=== PATIENT | male | born 1960 | race Caucasian/White ===

== ENCOUNTER 2017-05-13 14:42 | Inpatient (IN) | payer OTHER ==
[2017-05-13 15:54] VITALS: BMI 33.0
--- NOTE | 2017-05-13 18:12 | HP ---
COWS - Scale Resting Pulse: 1= [place] 81-100 Sweatin= Chills/Flushing Restless Observation: 1= Difficult to Sit Still Pupil Size: 0= Normal to Room Light Bone or Joint Aches: 2= Severe Diffuse Aches Runny Nose/ Eye Tearin= Runny Nose/Eyes GI Upset > 30mins: 2= Nausea/Diarrhea Tremor Observation: 2= Slight Tremor Visible Yawning Observation: 0= None Anxiety or Irritability: 2=Irritable/Anxious Goose Flesh Skin: 0=Smooth Skin COWS Score: 13 CIWA Score - CIWA Score Nausea/Vomitin-Mild Nausea/No Vomiting Muscle Tremors: 4-Moderate,w/Arms Extend Anxiety: 4-Mod. Anxious/Guarded Agitation: 4-Moderately Restless Paroxysmal Sweats: 1-Minimal Palms Moist Orientation: 0-Oriented Tacttile Disturbances: 0-None Auditory Disturbances: 0-None Visual Disturbances: 0-None Headache: 0-None Present CIWA-Ar Total Score: 14 Admission ROS S - HPI Chief Complaint: withdrawal sx patient states that he is in pain management program since 2015, last visited 05/07/2017, due to + opiate urine, patient wants to detox from opiate following up with program possible suboxone or naltraxone as maintenance medical assistance treatment Allergies/Adverse Reactions: Allergies Allergy/AdvReac Type Severity Reaction Status Date / Time No Known Allergies Allergy Verified 05/13/17 16:36 History of Present Illness: 56 years old male with long history of opiate dependence, has positive ppd, gerd , denies mental illness is admitted to detox Exam Limitations: No Limitations - Ebola screening Have you traveled outside of the country in the last 21 days: No Have you had contact with anyone from an Ebola affected area: No Have you been sick,other than usual withdrawal symptoms: No Do you have a fever: No - Review of Systems Constitutional: Changes in sleep, Weight Stable EENT: reports: Blurred Vision (reading eye glasses), Dental Problems (no teeth dental at home) Respiratory: reports: No Symptoms reported Cardiac: reports: No Symptoms Reported GI: reports: Nausea, Poor Fluid Intake, Indigestion, Abdominal cramping : reports: No Symptoms Reported Musculoskeletal: reports: No Symptoms Reported Integumentary: reports: Change in Color (both upper extremities) Neuro: reports: Tremors Endocrine: reports: No Symptoms Reported Hematology: reports: No Symptoms Reported Psychiatric: reports: Judgement Intact, Mood/Affect Appropiate, Orientated x3 Other Systems: Reviewed and Negative Patient History - Patient Medical History Hx Anemia: No Hx Asthma: No Hx Chronic Obstructive Pulmonary Disease (COPD): No Hx Cancer: No Hx Cardiac Disorders: No Hx Congestive Heart Failure: No Hx Hypertension: No Hx Hypercholesterolemia: No Hx Pacemaker: No HX Cerebrovascular Accident: No Hx Seizures: No Hx Dementia: No Hx Diabetes: No Hx Gastrointestinal Disorders: Yes Hx Liver Disease: No Hx Genitourinary Disorders: No Hx Sexually Transmitted Disorders: No Hx Renal Disease (ESRD): No Hx Thyroid Disease: No Hx Human Immunodeficiency Virus (HIV): No Hx Hepatitis C: Yes (for 20 years) Hx Depression: No Hx Suicide Attempt: No Hx Bipolar Disorder: No Hx Schizophrenia: No - Patient Surgical History Past Surgical History: Yes Hx Neurologic Surgery: No Hx Cataract Extraction: No Hx Cardiac Surgery: No Hx Lung Surgery: No Hx Breast Surgery: No Hx Breast Biopsy: No Hx Abdominal Surgery: No Hx Appendectomy: No Hx Cholecystectomy: Yes (2015) Hx Genitourinary Surgery: No Hx Orthopedic Surgery: Yes (arthroscopic sx, left knee x2) Other Surgical History: R ankle sx in 2013 Anesthesia Reaction: No - PPD History Documented Results: Positive w/proof Implanted On Prior [facility] Admission?: No Date: 12/04/11 PPD to be Administered?: No - Smoking Cessation Smoking history: Never smoked Have you smoked in the past 12 months: No Hx Chewing Tobacco Use: No Initiated information on smoking cessation: No - Substance & Tx. History Hx Alcohol Use: Yes Hx Substance Use: Yes Substance Use Type: Alcohol, Heroin, Opiates Hx Substance Use Treatment: Yes (2011 [facility]) - Substances Abused Heroin Route: Injection Frequency: Daily Amount used: 10-15 BAGS Age of first use: 22 Date of Last Use: 05/13/17 Alcohol Route: Oral Frequency: Daily Amount used: 12 PK BEER Age of first use: 13 Date of Last Use: 05/13/17 Family Disease History - Family Disease History Family History: Unremarkable Admission Physical Exam [facility] - Vital Signs Vital Signs: Vital Signs - 24 hr 05/13/17 15:51 Temperature 97.5 F L Pulse Rate 83 Respiratory 20 Rate Blood Pressure 139/82 - Physical General Appearance: Yes: Appropriately Dressed, Mild Distress, Obese, Tremorous , Irritable, Sweating, Anxious HEENTM: Yes: Hearing grossly Normal, Normal ENT Inspection, Normocephalic, Normal Voice Respiratory: Yes: Chest Non-Tender, Lungs Clear, Normal Breath Sounds, No Respiratory Distress, No Accessory Muscle Use Neck: Yes: Supple, Trachea in good position Breast: Yes: Breasts Symetrical Cardiology: Yes: Regular Rhythm, Regular Rate, S1, S2 Abdominal: Yes: Non Tender, Soft, Increased Bowel Sounds Genitourinary: Yes: Within Normal Limits Back: Yes: Normal Inspection Musculoskeletal: Yes: full range of Motion, Gait Steady, Muscle weakness (right leg) Extremities: Yes: Normal Inspection, Non-Tender, Tremors Neurological: Yes: Fully Oriented, Alert, Motor Strength 5/5, Normal Mood/Affect , Normal Response Integumentary: Yes: Warm Lymphatic: Yes: Within Normal Limits - Diagnostic (1) Alcohol dependence with uncomplicated withdrawal Current Visit: Yes Status: Acute (2) Opioid dependence with withdrawal Current Visit: Yes Status: Acute (3) Status post fall Current Visit: Yes Status: Chronic Comment: right leg injury (4) Positive PPD, treated Current Visit: Yes Status: Resolved (5) GERD (gastroesophageal reflux disease) Current Visit: Yes Status: Chronic Qualifiers: Esophagitis presence: without esophagitis Qualified Code(s): K21.9 - Gastro-esophageal reflux disease without esophagitis (6) Hepatitis C carrier Current Visit: Yes Status: Resolved (7) S/P cholecystectomy Current Visit: Yes Status: Resolved Cleared for Admission S - Detox or Rehab [facility] Level of Care: Medically Managed Detox Regimen/Protocol: Methadone/Librium S Breath Alcohol Content Breath Alcohol Content: 0 Urine Drug Screen - Results Drug Screen Negative: No Urine Drug Screen Results: OPI-Opiates, OXY-Oxycodone
[2017-05-13] MEDS ORDERED: chlordiazePOXIDE HCL 25 MG CAPSULE PO PRN (18:18)
[2017-05-13] MEDS ORDERED: guaiFENesin/D-METHORPHAN HB 10 ML UNIT-DOSE CUPS PO PRN (18:18)
[2017-05-13] MEDS ORDERED: MAG HYDROX/AL HYDROX/SIMETH 30 ML UNIT-DOSE CUP PO PRN (18:18)
[2017-05-13] MEDS ORDERED: P-EPHED 60MG/TRIPROLIDI 2.5MG TABLET PO PRN (18:18)
[2017-05-13] MEDS ORDERED: ACETAMINOPHEN 325 MG TABLET (FP) PO PRN (18:18)
[2017-05-13] MEDS ORDERED: chlordiazePOXIDE HCL 25 MG CAPSULE PO ONE (18:18)
[2017-05-13] MEDS ORDERED: MAGNESIUM CITRATE 300 ML BOTTLE PO PRN (18:18)
[2017-05-13] MEDS ORDERED: LOPERAMIDE HCL 2 MG CAPSULE PO PRN (18:18)
[2017-05-13] MEDS ORDERED: MAGNESIUM HYDROX 2400MG/30ML ORAL SUSPENSION 30 ML CUP PO PRN (18:18)
[2017-05-13] MEDS ORDERED: METHADONE HCL 10 MG TABLET (FOR DETOX USE ONLY) PO ONE ×2 (18:18→23:00)
[2017-05-13] MEDS ORDERED: MENTHOL/PHENOL 1 EACH UD MM PRN (18:18)
[2017-05-13] MEDS ORDERED: BACITRACIN 0.9 GM PACKET TP ONE (18:22)
[2017-05-13] MEDS: THIAMINE HCL 100 MG TABLET (FP) PO SCH (22:04)
[2017-05-13] MEDS: RANITIDINE HCL 150 MG TABLET (FP) PO SCH (22:05)
[2017-05-13] MEDS: chlordiazePOXIDE HCL 25 MG CAPSULE PO SCH (22:05)
[2017-05-13] MEDS: diphenhydrAMINE HCL 50 MG CAPSULE PO PRN (22:05)
[2017-05-14 01:28] LABS: URINE APPEARANCE CLEAR; URINE BILIRUBIN NEGATIVE (NEGATIVE); URINE BLOOD NEGATIVE (NEGATIVE); URINE COLOR LTYELLOW; URINE GLUCOSE (UA) NEGATIVE (NEGATIVE); URINE KETONE NEGATIVE (NEGATIVE); URINE LEUK ESTERASE TRACE (NEGATIVE); URINE NITRITE NEGATIVE (NEGATIVE); URINE PROTEIN NEGATIVE (NEGATIVE); URINE UROBILINOGEN NEGATIVE mg/dL (0.2-1.0)
[2017-05-14 01:31] LABS: URINE RBC <1 /hpf (0-3); URINE WBC 6 /hpf (3-5)
[2017-05-14] MEDS: chlordiazePOXIDE HCL 25 MG CAPSULE PO SCH ×4 (05:24→22:34)
[2017-05-14 09:45] LABS: MCHC 33.4 g/dl (32.0-35.9); MEAN CELL VOLUME 89.9 fl (80-96); MEAN PLT VOLUME 10.1 fl (7.5-11.1); PLATELET COUNT 143 K/MM3 (134-434); RDW 13.5 % (11.9-15.9); WHITE BLOOD COUNT 5.7 K/mm3 (4.0-10.0)
[2017-05-14] MEDS ORDERED: METHADONE HCL 10 MG TABLET (FOR DETOX USE ONLY) PO SCH (10:00)
[2017-05-14 10:25] LABS: ALBUMIN 3.2 g/dl (3.4-5.0); ALK PHOS 97 U/L (45-117); ANION GAP 9 (8-16); BILIRUBIN,TOTAL 0.8 mg/dL (0.2-1.0); CALCIUM 8.4 mg/dL (8.5-10.1); CO2 26 mmol/L (21-32); CREATININE 0.8 mg/dL (0.7-1.3); GLUCOSE,RANDOM 110 mg/dL (74-106); SGOT/AST 21 U/L (15-37); SGPT/ALT 34 U/L (12-78); TOT PROT 6.5 g/dl (6.4-8.2)
--- NOTE | 2017-05-14 10:38 | PN ---
[facility] CIWA - CIWA Score Nausea/Vomitin-No Nausea/No Vomiting Muscle Tremors: 4-Moderate,w/Arms Extend Anxiety: 4-Mod. Anxious/Guarded Agitation: 4-Moderately Restless Paroxysmal Sweats: 1-Minimal Palms Moist Orientation: 0-Oriented Tacttile Disturbances: 3-Moderate Itch/Numb/Burn Auditory Disturbances: 0-None Visual Disturbances: 0-None Headache: 0-None Present CIWA-Ar Total Score: 16 [facility] COWS - Scale Resting Pulse: 1= [place] 81-100 Sweatin= Chills/Flushing Restless Observation: 3= Extraneous Movement Pupil Size: 2= Moderately Dilated Bone or Joint Aches: 4=Acute Joint/Muscle Pain Runny Nose/ Eye Tearin= Nasal Congestion GI Upset > 30mins: 1= Stomach Cramp Tremor Observation of Outstretched Hands: 1= Tremor [place], Not Seen Yawning Observation: 1= 1-2x During Session Anxiety or Irritability: 2=Irritable/Anxious Goose Flesh Skin: 0=Smooth Skin COWS Score: 17 [facility] Progress Note (SOAP) Subjective: ANXIETY,TREMORS,IRRITABILITY,SWEATS, INTERMITTENT SLEEP. Objective: 05/14/17 10:37 Vital Signs Temperature 97.6 F 05/14/17 05:00 Pulse Rate 82 05/14/17 05:00 Respiratory Rate 20 05/14/17 05:00 Blood Pressure 150/98 05/14/17 05:00 O2 Sat by Pulse Oximetry (%) Laboratory Last Values WBC 5.7 K/mm3 (4.0-10.0) 05/14/17 07:50 RBC 5.04 M/mm3 (4.00-5.60) 05/14/17 07:50 Hgb 15.1 GM/dL (11.7-16.9) 05/14/17 07:50 Hct 45.3 % (35.4-49) 05/14/17 07:50 MCV 89.9 fl (80-96) 05/14/17 07:50 MCH 30.0 pg (25.7-33.7) 05/14/17 07:50 MCHC 33.4 g/dl (32.0-35.9) 05/14/17 07:50 RDW 13.5 % (11.9-15.9) 05/14/17 07:50 Plt Count 143 K/MM3 (134-434) 05/14/17 07:50 MPV 10.1 fl (7.5-11.1) 05/14/17 07:50 Sodium 140 mmol/L (136-145) 05/14/17 07:50 Potassium 3.8 mmol/L (3.5-5.1) 05/14/17 07:50 Chloride 105 mmol/L (98-107) 05/14/17 07:50 Carbon Dioxide 26 mmol/L (21-32) 05/14/17 07:50 Anion Gap 9 (8-16) 05/14/17 07:50 BUN 9 mg/dL (7-18) 05/14/17 07:50 Creatinine 0.8 mg/dL (0.7-1.3) D 05/14/17 07:50 Creat Clearance w eGFR > 60 (>60) 05/14/17 07:50 Random Glucose 110 mg/dL (74-106) H 05/14/17 07:50 Calcium 8.4 mg/dL (8.5-10.1) L 05/14/17 07:50 Total Bilirubin 0.8 mg/dL (0.2-1.0) 05/14/17 07:50 AST 21 U/L (15-37) D 05/14/17 07:50 ALT 34 U/L (12-78) D 05/14/17 07:50 Alkaline Phosphatase 97 U/L (45-117) 05/14/17 07:50 Total Protein 6.5 g/dl (6.4-8.2) 05/14/17 07:50 Albumin 3.2 g/dl (3.4-5.0) L 05/14/17 07:50 Urine Color Ltyellow 05/13/17 23:27 Urine Appearance Clear 05/13/17 23:27 Urine pH 5.0 (5.0-8.0) 05/13/17 23:27 Ur Specific [place] 1.020 (1.005-1.025) 05/13/17 23:27 Urine Protein Negative (NEGATIVE) 05/13/17 23:27 Urine Glucose (UA) Negative (NEGATIVE) 05/13/17 23:27 Urine Ketones Negative (NEGATIVE) 05/13/17 23:27 Urine Blood Negative (NEGATIVE) 05/13/17 23:27 Urine Nitrite Negative (NEGATIVE) 05/13/17 23:27 Urine Bilirubin Negative (NEGATIVE) 05/13/17 23:27 Urine Urobilinogen Negative mg/dL (0.2-1.0) 05/13/17 23:27 Urine RBC <1 /hpf (0-3) 05/13/17 23:27 Urine WBC 6 /hpf (3-5) 05/13/17 23:27 Ur Epithelial Cells Rare /hpf (FEW) 05/13/17 23:27 Assessment: 05/14/17 10:38 WITHDRAWAL SX Plan: CONTINUE DETOX
[2017-05-14] MEDS: RANITIDINE HCL 150 MG TABLET (FP) PO SCH ×2 (10:55→22:34)
[2017-05-14] MEDS: PRENATAL VITAMINS W/ FOLIC ACID TABLET (FP) PO SCH (10:55)
[2017-05-14] MEDS ORDERED: cloNIDine HCL 0.1 MG TABLET PO ONE (11:34)
[2017-05-14] MEDS: TRIMETHOBENZAMIDE HCL 200MG/2ML INJ IM PRN (12:01)
--- NOTE | 2017-05-14 13:30 | EKG ---
Test Reason : Blood Pressure : / mmHG Vent. Rate : 078 BPM Atrial Rate : 078 BPM P-R Int : 150 ms QRS Dur : 086 ms QT Int : 372 ms P-R-T Axes : 055 -28 014 degrees QTc Int : 424 ms NORMAL SINUS RHYTHM NORMAL ECG NO PREVIOUS ECGS AVAILABLE Confirmed by ELI BIRMINGHAM, MASOUD ([id number]) on 05/14/2017 1:29:36 PM Referred By: Jostin Ramires Confirmed By:MASOUD BENITEZ MD
[2017-05-14] MEDS: cloNIDine HCL 0.1 MG TABLET PO SCH (22:20)
[2017-05-14] MEDS: diphenhydrAMINE HCL 50 MG CAPSULE PO PRN (22:35)
[2017-05-14] MEDS: THIAMINE HCL 100 MG TABLET (FP) PO SCH (22:35)
[2017-05-15] MEDS: chlordiazePOXIDE HCL 25 MG CAPSULE PO SCH ×3 (05:52→17:24)
[2017-05-15] MEDS ORDERED: METHADONE HCL 10 MG/1 ML (20ML VIAL) IM ONE (09:52)
[2017-05-15] MEDS ORDERED: METHADONE DETOX 10 MG/1 ML [20ML VIAL] IM ONE (09:58)
[2017-05-15] MEDS ORDERED: METHADONE HCL 5 MG TABLET (FOR DETOX USE ONLY) PO SCH (10:00)
[2017-05-15] MEDS: TRIMETHOBENZAMIDE HCL 200MG/2ML INJ IM PRN ×2 (11:01→22:32)
--- NOTE | 2017-05-15 11:04 | PN ---
S CIWA - CIWA Score Nausea/Vomitin Muscle Tremors: 4-Moderate,w/Arms Extend Anxiety: 4-Mod. Anxious/Guarded Agitation: 4-Moderately Restless Paroxysmal Sweats: 3 Orientation: 0-Oriented Tacttile Disturbances: 0-None Auditory Disturbances: 0-None Visual Disturbances: 0-None Headache: 0-None Present CIWA-Ar Total Score: 20 [facility] Progress Note (SOAP) Subjective: Sweating,anxiety,tremors,muscle aches/spasm,body aches,runny nose,teary eyes Objective: 05/15/17 11:02 Vital Signs - 8 hr 05/15/17 05/15/17 05/15/17 03:30 06:18 09:52 Temperature 97.1 F L 97.4 F L Pulse Rate 92 H 97 H Respiratory 18 18 20 Rate Blood Pressure 149/88 159/106 Laboratory Last Values WBC 5.7 K/mm3 (4.0-10.0) 05/14/17 07:50 RBC 5.04 M/mm3 (4.00-5.60) 05/14/17 07:50 Hgb 15.1 GM/dL (11.7-16.9) 05/14/17 07:50 Hct 45.3 % (35.4-49) 05/14/17 07:50 MCV 89.9 fl (80-96) 05/14/17 07:50 MCH 30.0 pg (25.7-33.7) 05/14/17 07:50 MCHC 33.4 g/dl (32.0-35.9) 05/14/17 07:50 RDW 13.5 % (11.9-15.9) 05/14/17 07:50 Plt Count 143 K/MM3 (134-434) 05/14/17 07:50 MPV 10.1 fl (7.5-11.1) 05/14/17 07:50 Sodium 140 mmol/L (136-145) 05/14/17 07:50 Potassium 3.8 mmol/L (3.5-5.1) 05/14/17 07:50 Chloride 105 mmol/L (98-107) 05/14/17 07:50 Carbon Dioxide 26 mmol/L (21-32) 05/14/17 07:50 Anion Gap 9 (8-16) 05/14/17 07:50 BUN 9 mg/dL (7-18) 05/14/17 07:50 Creatinine 0.8 mg/dL (0.7-1.3) D 05/14/17 07:50 Creat Clearance w eGFR > 60 (>60) 05/14/17 07:50 Random Glucose 110 mg/dL (74-106) H 05/14/17 07:50 Calcium 8.4 mg/dL (8.5-10.1) L 05/14/17 07:50 Total Bilirubin 0.8 mg/dL (0.2-1.0) 05/14/17 07:50 AST 21 U/L (15-37) D 05/14/17 07:50 ALT 34 U/L (12-78) D 05/14/17 07:50 Alkaline Phosphatase 97 U/L (45-117) 05/14/17 07:50 Total Protein 6.5 g/dl (6.4-8.2) 05/14/17 07:50 Albumin 3.2 g/dl (3.4-5.0) L 05/14/17 07:50 Urine Color Ltyellow 05/13/17 23:27 Urine Appearance Clear 05/13/17 23:27 Urine pH 5.0 (5.0-8.0) 05/13/17 23:27 Ur Specific [place] 1.020 (1.005-1.025) 05/13/17 23:27 Urine Protein Negative (NEGATIVE) 05/13/17 23:27 Urine Glucose (UA) Negative (NEGATIVE) 05/13/17 23:27 Urine Ketones Negative (NEGATIVE) 05/13/17 23:27 Urine Blood Negative (NEGATIVE) 05/13/17 23:27 Urine Nitrite Negative (NEGATIVE) 05/13/17 23:27 Urine Bilirubin Negative (NEGATIVE) 05/13/17 23:27 Urine Urobilinogen Negative mg/dL (0.2-1.0) 05/13/17 23:27 Urine RBC <1 /hpf (0-3) 05/13/17 23:27 Urine WBC 6 /hpf (3-5) 05/13/17 23:27 Ur Epithelial Cells Rare /hpf (FEW) 05/13/17 23:27 RPR Titer Nonreactive (NONREACTIVE) 05/14/17 07:50 labs noted Assessment: 05/15/17 11:03 Severe withdrawal sx. Plan: Continue detox Give Methadone IM today [facility]
[2017-05-15] MEDS: cloNIDine HCL 0.1 MG TABLET PO SCH ×2 (12:16→22:10)
[2017-05-15] MEDS: PRENATAL VITAMINS W/ FOLIC ACID TABLET (FP) PO SCH (12:17)
[2017-05-15] MEDS: RANITIDINE HCL 150 MG TABLET (FP) PO SCH ×2 (12:17→22:10)
[2017-05-15] MEDS: chlordiazePOXIDE 5 MG CAPSULE PO SCH (22:10)
[2017-05-15] MEDS: diphenhydrAMINE HCL 50 MG CAPSULE PO PRN (22:10)
[2017-05-15] MEDS: THIAMINE HCL 100 MG TABLET (FP) PO SCH (22:10)
[2017-05-16] MEDS: chlordiazePOXIDE 5 MG CAPSULE PO SCH ×3 (05:47→17:47)
[2017-05-16] MEDS ORDERED: METHADONE HCL 10 MG TABLET (FOR DETOX USE ONLY) PO SCH (10:00)
[2017-05-16] MEDS: RANITIDINE HCL 150 MG TABLET (FP) PO SCH ×2 (10:11→22:07)
[2017-05-16] MEDS: PRENATAL VITAMINS W/ FOLIC ACID TABLET (FP) PO SCH (10:11)
[2017-05-16] MEDS: cloNIDine HCL 0.1 MG TABLET PO SCH ×2 (10:11→22:07)
[2017-05-16] MEDS: LISINOPRIL 10 MG TABLET (FP) PO SCH ×2 (10:56→22:07)
--- NOTE | 2017-05-16 13:46 | PN ---
[facility] Progress Note (SOAP) Subjective: Body Aches, Diarrhea, Interrupted sleep. Objective: PT. A & O X 3, OBSERVED AMBULATING ON UNIT. NO ACUTE DISTRESS. PT. DENIES CHEST PAIN. 05/16/17 13:43 Vital Signs Temperature 97.8 F 05/16/17 10:25 Pulse Rate 105 H 05/16/17 10:25 Respiratory Rate 18 05/16/17 10:25 Blood Pressure 130/94 05/16/17 10:25 O2 Sat by Pulse Oximetry (%) Laboratory Tests 05/13/17 05/14/17 05/14/17 23:27 07:50 07:50 WBC 5.7 RBC 5.04 Hgb 15.1 Hct 45.3 MCV 89.9 MCH 30.0 MCHC 33.4 RDW 13.5 Plt Count 143 MPV 10.1 Sodium 140 Potassium 3.8 Chloride 105 Carbon Dioxide 26 Anion Gap 9 BUN 9 Creatinine 0.8 D Creat Clearance w eGFR > 60 Random Glucose 110 H Calcium 8.4 L Total Bilirubin 0.8 AST 21 D ALT 34 D Alkaline Phosphatase 97 Total Protein 6.5 Albumin 3.2 L Urine Color Ltyellow Urine Appearance Clear Urine pH 5.0 Ur Specific [place] 1.020 Urine Protein Negative Urine Glucose (UA) Negative Urine Ketones Negative Urine Blood Negative Urine Nitrite Negative Urine Bilirubin Negative Urine Urobilinogen Negative Urine RBC <1 Urine WBC 6 Ur Epithelial Cells Rare RPR Titer 05/14/17 07:50 WBC RBC Hgb Hct MCV MCH MCHC RDW Plt Count MPV Sodium Potassium Chloride Carbon Dioxide Anion Gap BUN Creatinine Creat Clearance w eGFR Random Glucose Calcium Total Bilirubin AST ALT Alkaline Phosphatase Total Protein Albumin Urine Color Urine Appearance Urine pH Ur Specific [place] Urine Protein Urine Glucose (UA) Urine Ketones Urine Blood Urine Nitrite Urine Bilirubin Urine Urobilinogen Urine RBC Urine WBC Ur Epithelial Cells RPR Titer Nonreactive LABS NOTED. Assessment: 05/16/17 13:43 WITHDRAWAL SYMPTOMS. HYPERTENSION. Plan: CONTINUE DETOX. PATIENT REPORTS THAT HE BELIEVES THAT HE WAS PRESCRIBED LISINOPRIL FOR TREATMENT OF HTN IN PAST (UNABLE TO RECALL DAILY DOSE). START LISINOPRIL, 10 MG PO BID. CONTINUE TO MONITOR BP.
[2017-05-16] MEDS: chlordiazePOXIDE HCL 10 MG CAPSULE PO SCH (22:06)
[2017-05-16] MEDS: THIAMINE HCL 100 MG TABLET (FP) PO SCH (22:06)
[2017-05-17] MEDS: chlordiazePOXIDE HCL 10 MG CAPSULE PO SCH (05:57)
[2017-05-17] MEDS ORDERED: METHADONE HCL 5 MG TABLET (FOR DETOX USE ONLY) PO SCH (06:00)
[2017-05-17 07:02] VITALS: PULSE 106
[2017-05-17 09:55] VITALS: BP 104/74; TEMP 98.1
--- NOTE | 2017-05-17 13:24 | DS ---
[facility] Detox Discharge Summary Admission Date: 05/13/17 Discharge Date: 05/17/17 - History Present History: Alcohol Dependence, Opioid Dependence Pertinent Past History: PPD Positive GERD Hepatitis C - Physical Exam Results Vital Signs: Vital Signs Temperature 98.1 F 05/17/17 09:54 Pulse Rate 106 H 05/17/17 09:54 Respiratory Rate 18 05/17/17 09:54 Blood Pressure 104/74 05/17/17 09:54 O2 Sat by Pulse Oximetry (%) Pertinent Admission Physical Exam Findings: Withdrawal symptoms Laboratory Tests 05/13/17 05/14/17 05/14/17 23:27 07:50 07:50 WBC 5.7 RBC 5.04 Hgb 15.1 Hct 45.3 MCV 89.9 MCH 30.0 MCHC 33.4 RDW 13.5 Plt Count 143 MPV 10.1 Sodium 140 Potassium 3.8 Chloride 105 Carbon Dioxide 26 Anion Gap 9 BUN 9 Creatinine 0.8 D Creat Clearance w eGFR > 60 Random Glucose 110 H Calcium 8.4 L Total Bilirubin 0.8 AST 21 D ALT 34 D Alkaline Phosphatase 97 Total Protein 6.5 Albumin 3.2 L Urine Color Ltyellow Urine Appearance Clear Urine pH 5.0 Ur Specific [place] 1.020 Urine Protein Negative Urine Glucose (UA) Negative Urine Ketones Negative Urine Blood Negative Urine Nitrite Negative Urine Bilirubin Negative Urine Urobilinogen Negative Urine RBC <1 Urine WBC 6 Ur Epithelial Cells Rare RPR Titer 05/14/17 07:50 WBC RBC Hgb Hct MCV MCH MCHC RDW Plt Count MPV Sodium Potassium Chloride Carbon Dioxide Anion Gap BUN Creatinine Creat Clearance w eGFR Random Glucose Calcium Total Bilirubin AST ALT Alkaline Phosphatase Total Protein Albumin Urine Color Urine Appearance Urine pH Ur Specific [place] Urine Protein Urine Glucose (UA) Urine Ketones Urine Blood Urine Nitrite Urine Bilirubin Urine Urobilinogen Urine RBC Urine WBC Ur Epithelial Cells RPR Titer Nonreactive Labs noted - Treatment Hospital Course: Detox Protocol Followed, Detoxed Safely, Responded well, Discharged Condition Good - Medication Discharge Medications: Ambulatory Orders NK [No Known Home Medication] 05/13/17 - Diagnosis (1) Alcohol dependence with uncomplicated withdrawal Status: Acute (2) Opioid dependence with withdrawal Status: Acute (3) GERD (gastroesophageal reflux disease) Status: Chronic Qualifiers: Esophagitis presence: without esophagitis Qualified Code(s): K21.9 - Gastro-esophageal reflux disease without esophagitis (4) Hepatitis C virus infection Status: Chronic (5) PPD positive Status: Chronic - AMA Did Patient Leave Against Medical Advice: No
== END 2017-05-17 10:07 | disposition home or self-care (01) | DRG 773 ==
LOC: YASAS 14:42 → Y3N 17:34
PROVIDERS: ADMIT Internal Medicine; ATTEND Internal Medicine
PROC: HZ2ZZZZ Detoxification Services for Substance Abuse Treatment (ICD-10-PCS; principal; 2017-05-13)
DX: F11.23 Opioid dependence with withdrawal (principal); F10.230 Alcohol dependence with withdrawal, uncomplicated; B18.2 Chronic viral hepatitis C; R76.11 Nonspecific reaction to tuberculin skin test without active tuberculosis; K21.9 Gastro-esophageal reflux disease without esophagitis; S89.91XA Unspecified injury of right lower leg, initial encounter; W19.XXXA Unspecified fall, initial encounter; Z90.49 Acquired absence of other specified parts of digestive tract
CPT/HCPCS: 36415; 71020-TC; 80053; 81003; 81015; 85027; 86593; 93005; 93010